=== PATIENT | female | born 1995 | race Caucasian/White ===

== ENCOUNTER 2020-11-27 15:29 | Emergency (ER) | payer OTHER, SELFPAY ==
[2020-11-27 15:40] VITALS: BP 134/85; PULSE 78; RESP 16; TEMP 36.2; O2SAT 99
--- NOTE | 2020-11-27 15:48 | ED.GENADULT ---
HPI - General Adult General Chief complaint: Skin/Abscess/Foreign Body Stated complaint: hives Time Seen by Provider: 11/27/20 15:48 Source: patient and RN notes reviewed Mode of arrival: ambulatory Limitations: no limitations History of Present Illness HPI narrative: 25-year-old female presents with complaints of red, raised, itching, burning, rash throughout body for the past 5 days. ?Citlali reports going on a floating trip and urinating out in the weeds. ?Several days later noticed a rash on the buttocks and back of legs, and the rash continues to spread throughout my body. ?Ivarest and other OTC medication with little relief until last night at approximately 23:00. ?Citlali reports breaking out in hives at approximately 23:00 on 11/26/20 went to sleep without treatment, took Benadryl today at 09:00 without relief. ?Denies new detergent, personal hygiene products, or laundry detergent. ?No new foods or medications. ?No swelling, bleeding, or drainage. ?Denies fever or chills, headaches, weakness, fatigue, myalgia, facial swelling, or tongue swelling. ?Denies chest pain or dyspnea. ?LMP 2 weeks ago. ?Remains active. ?The patient reports she has not been diagnosed with COVID-19. ?The patient reports she received 2 Pfizer COVID-19 vaccines. ?The patient reports she is not waiting for the results of a COVID-19 lab test. ?The patient reports she does not have a new or worsening cough or shortness of breath. ?The patient reports she does not have any rhinorrhea, congestion, loss of taste or smell, sore throat, and diarrhea. ?Denies recent traveling. ?Denies concerns for COVID-19 or exposures. ?At this time, the patient is not suspected of having COVID-19. Some parts of this dictation were generated by voice recognition software and may contain typographical and/or grammatical inaccuracies. Related Data Allergies Allergy/AdvReac Type Severity Reaction Status Date / Time aspartame Allergy Other Verified 11/27/20 15:51 Review of Systems Review of Systems: CONSTITUTIONAL: Denies fever, chills, sweats. EYES: Denies visual changes, redness, discharge. ENT: Denies rhinorrhea, congestion, sore throat, otalgia. CARDIOVASCULAR: Denies chest pain, palpitations, edema. RESPIRATORY: Denies dyspnea, wheezing, cough. GASTROINTESTINAL: Denies abdominal pain, nausea, vomiting, diarrhea. SKIN: Complaints of red, burning, and itching rash throughout the body. Denies drainage. MUSCULOSKELETAL: Denies acute back pain, joint pain, or myalgia. NEUROLOGIC: Denies numbness or focal weakness. PSYCHIATRIC: Denies anxiety or depression. All other systems reviewed are negative, except as documented in HPI. [facility] Past Medical History Medical History (Updated 11/27/20 @ 16:21 by AZIZA Santana) Shoulder problem Surgical History Surgical History (Updated 11/27/20 @ 16:18 by AZIZA Santana) History of shoulder surgery RT Family History Family History (Updated 11/27/20 @ 16:19 by AZIZA Santana) Father Hypertension Mother Asthma Social History Social History (Updated 11/27/20 @ 16:19 by AZIZA Santana) Smoking status: Never smoker Tobacco type: cigarettes Second hand tobacco smoke exposure: No Alcohol intake: current Substance use: never Substance use type: does not use Living arrangements: with family Occupation/Education: occupation Gender identity (if verbalized by the patient): Female Comments At time of signature, agree with the nurse past medical, surgical, social, and family history. There is no relevant family history pertinent to the presenting complaint. Exam Narrative: GENERAL: This is a well-nourished, well-developed patient, in no apparent distress. Talks in full sentences and ambulates with steady gait without dyspnea. HEAD: Normocephalic, atraumatic. EYES: PERRL. Sclera clear/white. Vision is grossly intact. EARS: External ears normal, auditory canals clear and wi
[2020-11-27] MEDS: methylPREDNISolone SOD SUCC 125 MG VIAL IM (16:12)
== END 2020-11-27 16:32 | disposition home or self-care (01) ==
PROVIDERS: Emergency Provider Nurse Practitioner Family
DX: L23.7 Allergic contact dermatitis due to plants, except food (principal)
CPT/HCPCS: 96372; 99213; G0463; J2930

== ENCOUNTER 2023-01-05 09:13 | Emergency (ER) | payer OTHER, SELFPAY ==
[2023-01-05 09:46] VITALS: BP 141/78; PULSE 92; RESP 18; TEMP 36.7; O2SAT 98
--- NOTE | 2023-01-05 09:58 | ED.URI ---
HPI - URI/Sore Throat General Chief Complaint: Upper Respiratory Infection Stated Complaint: sob,bodyache Time Seen by Provider: 01/05/23 09:58 Source: patient Mode of arrival: ambulatory Limitations: no limitations History of Present Illness HPI Narrative: 27-year-old female presents with complaint of nasal congestion, cough, chest congestion, fatigue and body aches for the past 3-4 days. Reports shortness of breath with exertion starting yesterday. Using [id number] medications to treat her symptoms. Reports history of pneumonia. Afebrile. Patient works in hospital. All systems reviewed and negative except as noted above. Related Data Allergies Allergy/AdvReac Type Severity Reaction Status Date / Time aspartame Allergy Other Verified 01/05/23 10:11 Review of Systems Review of Systems: CONSTITUTIONAL: Denies fever, chills, or sweats. reports fatigue. EYES: Denies visual changes, redness, or discharge. ENT: Reports rhinorrhea, congestion. Denies sore throat, or otalgia. CARDIOVASCULAR: Denies chest pain, palpitations, or edema. RESPIRATORY: Reports cough and dyspnea with exertion. GASTROINTESTINAL: Denies abdominal pain, nausea, vomiting, or diarrhea. GENITOURINARY: Denies dysuria or hematuria. SKIN: Denies rash or itching. MUSCULOSKELETAL: Denies back pain, joint pain, or myalgia. NEUROLOGIC: Denies headache, numbness, or weakness. PSYCHIATRIC: Denies anxiety or depression. All other systems reviewed are negative, except as documented in HPI. [facility] Past Medical History Medical History (Updated 01/05/23 @ 10:08 by Ernestine Jordan NP) Shoulder problem Surgical History Surgical History (Updated 11/27/20 @ 16:18 by AZIZA Santana) History of shoulder surgery RT Family History Family History (Updated 11/27/20 @ 16:19 by AZIZA Santana) Father Hypertension Mother Asthma Social History Social History (Updated 11/27/20 @ 16:19 by AZIZA Santana) Smoking status: Never smoker Tobacco type: cigarettes Second hand tobacco smoke exposure: No Alcohol intake: current Substance use: never Substance use type: does not use Living arrangements: with family Occupation/Education: occupation Gender identity (if verbalized by the patient): Female Comments At time of signature, agree with nursing past medical, surgical, social and family history. There is no relevant family history pertinent to the presenting complaint. Exam Narrative: GENERAL: This is a well-nourished, well-developed patient, in no apparent distress. HEAD: normocephalic, atraumatic. EYES: PERRL. Sclera clear/white. Vision is grossly intact. EARS: External ears normal, auditory canals clear and without drainage, fluid bilateral TMs without erythema or perforation. Hearing grossly intact. NOSE: External nose normal with purulent nasal drainage, erythema and swelling to bilateral nares. THROAT: Mucous membranes moist, posterior pharynx clear. NECK: Neck supple, non-tender without lymphadenopathy, masses or thyromegaly. CARDIOVASCULAR: Regular rate and rhythm without murmurs, gallops, or rubs. RESPIRATORY: Decreased lung Sounds to right lower lung field. No respiratory distress. No wheezes, rales, or rhonchi. SKIN: warm, Dry, intact with no suspicious lesions or rash, good texture and turgor. NEURO: awake, alert, and oriented to person, place and time. There were no obvious focal neurologic abnormalities. EXTREMITIES: No joint tenderness, effusion, or edema noted. Course Course Level of Care: Express Care Visit Vital Signs Vital signs: Vital Signs Temperature 36.7 C 01/05/23 09:46 Pulse Rate 92 01/05/23 09:46 Respiratory Rate 18 01/05/23 09:46 Blood Pressure 141/78 H 01/05/23 09:46 Pulse Oximetry 98 01/05/23 09:46 Oxygen Delivery Room Air 01/05/23 09:46 Temperature 36.7 C 01/05/23 09:46 Pulse Rate 92 01/05/23 09:46 Respirat
== END 2023-01-05 10:25 | disposition home or self-care (01) ==
PROVIDERS: Emergency Provider Nurse Practitioner Family
DX: J06.9 Acute upper respiratory infection, unspecified (principal); R05.9 Cough, unspecified; Z20.822 Contact with and (suspected) exposure to COVID-19
CPT/HCPCS: 87081; 87426; 87804; 87880; 99213; C9803; G0463